=== PATIENT | female | born 1970 | race Caucasian/White ===

== ENCOUNTER 2019-04-06 17:00 | Emergency (ER) | payer OTHER | END 2019-04-06 19:01 | disposition home or self-care (01) | LOC: FTE 17:00 | DX: L72.9 Follicular cyst of the skin and subcutaneous tissue, unspecified (principal); I10 Essential (primary) hypertension; E11.9 Type 2 diabetes mellitus without complications; L08.9 Local infection of the skin and subcutaneous tissue, unspecified | CPT/HCPCS: 99283; Z7502 ==

== ENCOUNTER 2019-04-11 19:08 | Emergency (ER) | payer OTHER ==
[2019-04-11] MEDS: LIDOCAINE 1% (MPF) 5 ML VIAL INFIL (20:38)
== END 2019-04-11 21:53 | disposition home or self-care (01) ==
LOC: FTE 21:53
DX: N76.4 Abscess of vulva (principal); I10 Essential (primary) hypertension
CPT/HCPCS: 99282; Z7502

== ENCOUNTER → 2019-04-23 | Emergency (ER) | payer OTHER ==
[2019-04-23] MEDS: KETOROLAC 60 MG INJ IM (12:56)
[2019-04-23 13:10] LABS: URINE BLOOD (Dip) POC Negative (NEGATIVE); URINE GLUCOSE (Dip) POC Negative (NEGATIVE); URINE KETONES (Dip) POC Negative (NEGATIVE); URINE LEUKOCYTE EST (Dip) POC 1+ (NEGATIVE); URINE NITRITE (Dip) POC Negative (NEGATIVE); URINE TOTAL PROTEIN POC Negative (NEGATIVE)
== END | disposition home or self-care (01) ==
LOC: FTE 12:11
DX: M62.838 Other muscle spasm (principal); I10 Essential (primary) hypertension; E11.9 Type 2 diabetes mellitus without complications
CPT/HCPCS: 71045; 81003; 93005; 96372; 99284-25